=== PATIENT | male | born 1990 | race Caucasian/White ===

== ENCOUNTER 2017-07-15 14:48 | Inpatient (IN) | payer BC, OTHER ==
[~2017-07-15] VITALS: Ht 180.3 cm; Wt 104.3 kg
--- NOTE | 2017-07-15 18:50 | NUR ---
PRE-ASSESSMENT: Client is a 27 y/o male, a/o x 4, he presents with anxious mood, flat affect, he avoids eye contact. he is fully ambulatory. VS BP 137/77, P 86, RR 16, TEMP 97.6, SPo2 97% on RA, pain 0/10. Client is here for heroin withdrawal, he has been using heroin IV since the age of 17 y/o, last used today @ 1200 1 gm. Client denies any past medical history or surgical history. Client denies taking any medications. Client states that he does not have a PCP. Unit and facility protocols explained, he verbalized understanding.
[2017-07-15] MEDS ORDERED: ONDANSETRON 4 MG/2 ML VIAL IM PRN (19:45)
[2017-07-15] MEDS ORDERED: LORAZEPAM 1 MG TABLET PO PRN (19:45)
[2017-07-15] MEDS ORDERED: MAG HYDROX/AL HYDROX/SIMETH 30 ML LIQUID UDC PO PRN (19:45)
[2017-07-15] MEDS ORDERED: DICYCLOMINE HCL 20 MG TABLET PO PRN (19:45)
[2017-07-15] MEDS ORDERED: ONDANSETRON ODT 4 MG TAB.RAPDIS SL PRN (19:45)
[2017-07-15] MEDS ORDERED: DOCUSATE SODIUM 250 MG CAPSULE PO PRN (19:45)
[2017-07-15] MEDS ORDERED: MAGNESIUM HYDROXIDE 30 ML LIQUID UDC PO PRN (19:45)
[2017-07-15] MEDS ORDERED: diphenhydrAMINE 50 MG CAPSULE PO PRN (19:45)
[2017-07-15] MEDS ORDERED: CLONIDINE HCL 0.1 MG TABLET PO PRN (19:45)
[2017-07-15] MEDS ORDERED: HYDROXYZINE PAMOATE 25 MG CAPSULE PO PRN (19:45)
[2017-07-15] MEDS ORDERED: MIRALAX 17 GM POWD.PACK PO PRN (19:45)
[2017-07-15] MEDS ORDERED: LOPERAMIDE HCL 2 MG CAPSULE PO PRN ×2 (19:45)
[2017-07-15] MEDS ORDERED: ACETAMINOPHEN 325 MG TABLET PO PRN (19:45)
[2017-07-15] MEDS ORDERED: IBUPROFEN 600 MG TABLET PO PRN (19:45)
--- NOTE | 2017-07-15 20:00 | NUR ---
Admission Patient is a 27 year old male arriving from [facility], admitted to [facility] to receive treatment for his Opioid Dependence. Patient was escorted on to unit by male JOB HONER where body check was rendered. Skin check rendered by male nurse with skin noted intact. Patient is able to provide Urine drug screen upon arrival to unit. Patient verbalizes no known allergies. Height noted as 5'11 and weight noted as 230lbs. Patient is ambulatory with no assistance needed. Patient is cooperative with admission process but appears restless and easily agitated. Breathing is even and non labored with no signs of SOB. No pain or discomfort verbalized. BUE and BLE noted to be WNL with no edema noted. Lung sounds clear with no cough noted. Bowel sounds are active in all 4 quadrants. No Past medical History verbalized. No history of Seizure noted. Patient denies any suicidal ideations. He describes his usage as: 1. Heroin, which he started at the age of 17, but recently relapsed on June 24, 2017. Patient reports of using 1GM IV Daily. Last used noted to be 1200 on day of admission using 1GM IV. Patient reports his signs and symptoms of withdrawal as "Nausea, stomach cramps, chills, sweats, very restless, anxious, irritable." Patient currently lives alone in an apartment in [place] and is currently unemployed. Admission COWS noted to be 9. All information reviewed with Dr. Martinez. Labs to be rendered. PRN medications available for increased signs and symptoms. Will continue plan of care as ordered.
[2017-07-15 20:10] VITALS: BP 140/72
[2017-07-15] MEDS ORDERED: BUPRENORPHINE HCL 2 MG TAB.SUBL SL PRN (21:00)
[2017-07-15] MEDS ORDERED: LORAZEPAM 1 MG TABLET PO ONE (21:00)
[2017-07-15 21:38] LABS: BASOPHILS % (AUTO) 0.3 % (0.0-2.0); EOSINOPHILS # (AUTO) 0.2 K/uL (0.0-0.7); HEMATOCRIT 37.1 % (36.7-47.1); HEMOGLOBIN 12.8 g/dL (12.5-16.3); LYMPHOCYTES # (AUTO) 1.6 K/uL (20.0-40.0); LYMPHOCYTES % (AUTO) 16.6 % (20.5-51.5); MEAN CORPUSCULAR HEMOGLOBIN 30.4 uug (23.8-33.4); MEAN CORPUSCULAR HGB CONC 35 g/dL (32.5-36.3); MEAN CORPUSCULAR VOLUME 87.9 fL (73.0-96.2); MONOCYTES # (AUTO) 0.9 K/uL (2.0-10.0); MONOCYTES % (AUTO) 9.7 % (0.0-11.0); NEUTROPHILS # (AUTO) 6.7 K/uL (1.8-8.9); NEUTROPHILS % (AUTO) 71.4 % (38.5-71.5); PLATELET COUNT (AUTO) 265 K/uL (152-348); RED BLOOD CELL COUNT(AUTO) 4.22 MIL/uL (4.06-5.63); WHITE BLOOD COUNT (AUTO) 9.4 K/uL (3.6-10.2)
[2017-07-15] MEDS: METHOCARBAMOL 750 MG TABLET PO PRN (21:40)
--- NOTE | 2017-07-15 21:40 | NUR ---
PRN Medication Administration Patient noted verbalizing increased body aches, stomach cramps, and heartburn. PRN Bentyl, Maalox, and Robaxin administered with one time dose of Ativan 2mg. COWS noted to be 9. Patient tolerated medication well. Will continue to monitor.
[2017-07-15 21:41] LABS: *AMPHETAMINE, URINE NEGATIVE (NEGATIVE); *BARBITURATE, URINE NEGATIVE (NEGATIVE); *CANNABINOID, URINE NEGATIVE (NEGATIVE); *COCCAINE, URINE NEGATIVE (NEGATIVE); *OPIATE, URINE POSITIVE (NEGATIVE); *PHENCYCLIDINE SCREEN,URINE NEGATIVE (NEGATIVE)
[2017-07-15 21:45] LABS: ALANINE AMINOTRANSFERASE 49 U/L (16-63); ALKALINE PHOSPHATASE 45 U/L (50-136); ASPARTATE AMINOTRANSFERASE 32 U/L (15-37); BILIRUBIN,TOTAL 0.5 mg/dL (0.2-1.0); CARBON DIOXIDE 36 mmol/L (21-32); CHLORIDE 98 mmol/L (98-107); CREATININE 1.1 mg/dL (0.6-1.3); GLUCOSE 105 mg/dL (74-106); POTASSIUM 3.3 mmol/L (3.5-5.1); TOTAL PROTEIN, SERUM 6.3 g/dL (6.4-8.2); UREA NITROGEN, BLOOD 11 mg/dL (7-18)
[2017-07-15 21:47] LABS: ETHANOL < 3 MG/DL (0-0)
[2017-07-15] MEDS ORDERED: POTASSIUM CHLORIDE 20 MEQ TAB.PRT.SR PO ONE (22:30)
--- NOTE | 2017-07-15 22:40 | NUR ---
PRN Medication Reassessment/MD Communication Patient is noted in his bed, awake, alert and verbally responsive. Patient was given PRN Bentyl, Robaxin, and Maalox. Patient is able to verbalize "the medications helped me relax. Im going to try and get some sleep." PRN medications noted to be effective. Labs resulted and relayed to MD with new order placed for -DUR 20meq one time dose. Medication administered as per order. Patient tolerated medication well. Will continue to monitor.
[2017-07-16 00:20] VITALS: BP 129/79
[2017-07-16 04:15] VITALS: BP 128/83
--- NOTE | 2017-07-16 07:10 | NUR ---
End of Shift Patient is in bed sleeping. Breathing even and non labored. Patient is a 27 year old male admitted on 07/16/17 for Opiate Dependence under the care of Dr. Martinez. Patient is set to start a modified 4 day Subutex taper this morning 07/16/17 0900. Patient verbalizes no known allergies, wishes to be full code, following a regular diet, placed on fall precautions. No Past medical history noted. Patient Received PRN Bentyl, Robaxin, and Maalox with all medications noted to be effective. Patient slept a total of 7 hours. Last noted CIWA 9. All needs attended to promptly. Will endorse to continue plan of care as ordered.
--- NOTE | 2017-07-16 07:50 | NUR ---
START OF SHIFT NOTE: Patient is a 27 year old male admitted to [facility] on 07/15/2017 for safety withdrawal from Opioid. Patient's order for4 Day Subutex taper will starting today, 07/16/2017 @0900. Patient reports NKA, is on Full Code, Regular Diet, and Fall Precautions. Patient denies PMH. Patient is alert and oriented x4. Speech is clear and soft. CIWA 7. Patient presented with anxiety, agitation, nervousness, restlessness, nasal stuffy and moist eyes, tremors that can be felt, and sweating. Patient denies any hallucinations now. Patient denies SI/HI. VS: T: 98.4, HR: 72, BP: 121/56, O2SAT in RA 98%, RR:14, pain level "0/10". Respirations unlabored and even. Patient denies cough, SOB, and chest pain. Abdomen is soft and non-tender. Skin is intact, warm, and dry to touch. Encouraged fluids intake as tolerated. All needs met. Safety measures in place: Call light within reach, bed is locked and in the lowest position, padded bed rails up x2. Patient endorsed by night club manager nurse. Report received.
[2017-07-16 08:00] VITALS: BP 121/56
[2017-07-16] MEDS: BUPRENORPHINE HCL 2 MG TAB.SUBL SL SCH ×3 (08:37→20:17)
[2017-07-16] MEDS ORDERED: TUBERCULIN,PURIF.PROT.DERIV. 5 TU/0.1 ML TEST ID ONE (09:00)
[2017-07-16 12:00] VITALS: BP 112/60
[2017-07-16 16:00] VITALS: BP 126/60
--- NOTE | 2017-07-16 18:51 | NUR ---
END OF SHIFT NOTE: Patient is a 27 year old male, admitted on 07/15/2017 for Heroin dependence, continues 4 Day Subutex Taper, tolerated well without ASE. Patient remains compliant with treatment, medications, and diet regime. Patient reports NKA, is on Full Code, Fall Precautions. Last CIWA 5 @1600. Patient presented with anxiety, agitation, nervousness , tremors, that can be felt, generalized body aches, barely sweating, and restlessness. Last VS@ 1600: T: 98.4, HR: 80,BP:126/60, O2SAT: 99%, RR: 16, pain level "5/10". Respirations are even and unlabored. Lung Sounds clear throughout. Patient denies cough, SOB, and chest pain. Skin is intact, warm, and dry to touch. No PRN Medications administrated during my shift. Patient intake 794 ml, voided x1. Encouraged fluids intake as tolerated. Encouraged to attend groups activities. Patient intake 2,500 ml, voided x1. Encouraged fluids intake as tolerated. Encouraged to attend groups activities. All needs met. Safety measures in place: Call light within reach, bed is locked and in the lowest position, padded bed rails up x2. Patient endorsed to weight shifter nurse. Report given.
--- NOTE | 2017-07-16 19:10 | NUR ---
Start of Shift Patient Received. Patient is in bed sleeping but easily aroused to verbal stimuli. Breathing even and non labored. Patient is a 27 year old male admitted on 07/16/17 for Opiate Dependence under the care of Dr. Martinez. Patient was started on a 4 day Subutex taper and is tolerating well. Patient verbalizes no known allergies, Full Code, Regular Diet, placed on fall precautions, and skin intact. No Past medical history noted. No PRN Medications administered. Last noted COWS 5. All needs attended to promptly. Will endorse to continue plan of care as ordered.
[2017-07-16 20:06] VITALS: BP 140/68
[2017-07-16] MEDS: METHOCARBAMOL 750 MG TABLET PO PRN (20:16)
[2017-07-16] MEDS: GABAPENTIN 300 MG CAPSULE PO SCH (20:16)
--- NOTE | 2017-07-16 20:20 | NUR ---
PRN Medication Administration Patient noted verbalizing increased anxiety, restlessness, and increased body aches. PRN Robaxin and Clonidine administered as per order. Will continue to monitor.
--- NOTE | 2017-07-16 21:20 | NUR ---
PRN Medication Reassessment Patient is noted in bed sleeping. Breathing even and non labored. No restlessness or facial grimacing noted. Patient was given PRN Clonidine and Robaxin with medication noted to be effective. Will continue to monitor.
[2017-07-17 00:36] VITALS: BP 123/79
[2017-07-17 04:00] VITALS: BP 129/84
--- NOTE | 2017-07-17 07:10 | NUR ---
End of Shift Patient is in bed sleeping. Breathing even and non labored. Patient is a 27 year old male admitted on 07/16/17 for Opiate Dependence under the care of Dr. Martinez. Patient was started on a 4 day Subutex taper and is tolerating well. Patient verbalizes no known allergies, Full Code, Regular Diet, placed on fall precautions, and skin intact. No Past medical history noted. Patient received PRN Clonidine and Robaxin with medication noted to be effective. Last noted COWS 7. All needs attended to promptly. Will endorse to continue plan of care as ordered.
--- NOTE | 2017-07-17 07:40 | NUR ---
START OF SHIFT NOTE Received report from night nurse, 27 year old male admitted for Opioid dependence. Patient cont on 4 days Subutex taper. Patient denies any PMH. Per endorsement pt received PRN Robaxin/Clonidine effective per night nurse, Last COWS was 7. Patient slept for 10 hours. Received patient in room alert and oriented x 4. Educated patient on the current plan of care for the day and medication regimen. Safety measures in place. call light kept with in reach, Will continue to monitor.
[2017-07-17 08:00] VITALS: BP 135/64
[2017-07-17] MEDS: GABAPENTIN 300 MG CAPSULE PO SCH ×3 (08:42→21:13)
[2017-07-17] MEDS ORDERED: BUPRENORPHINE HCL 2 MG TAB.SUBL SL SCH (09:00)
[2017-07-17 12:00] VITALS: BP 108/55
[2017-07-17 12:11] LABS: HEPATITIS B SURFACE AG Negative (Negative)
[2017-07-17] MEDS: BACLOFEN 10 MG TABLET PO SCH ×2 (14:35→21:13)
[2017-07-17] MEDS: BUPRENORPHINE HCL 2 MG TAB.SUBL SL SCH ×2 (14:35→21:14)
[2017-07-17 16:00] VITALS: BP 117/57
--- NOTE | 2017-07-17 19:10 | NUR ---
END OF SHIFT NOTE Patient cont on Subutex taper tolerating well. Patient presented with body aches, anxiety, agitation, stuffy nose, scheduled medications administered noted to be effective. patient did not receive any PRN during shift. Vital signs remained WNL. Patient rested in bed most of the shift and isolated self from peers. He did not attend any groups and activities. Patient educated to attend groups to learn new coping skills with good verbal understanding. Encourage Po fluids as tolerated. Last COWS score was 3 @ 1600. All needs attended, Safety measures in place, call light within reach. Patient endorsed to night nurse in stable condition.
--- NOTE | 2017-07-17 19:15 | NUR ---
START OF SHIFT NOTE : Patient is a 27 year old male admitted to [facility] on 07/15/2017 for safety withdrawal from Opioid. Patient placed on 4 Day Subutex taper started on 07/16/2017. Patient reports NKA, is on Full Code, Regular Diet, and Fall Precautions. Patient denies PMH. Patient is alert and oriented x4. Speech is clear and soft. Patient presented with anxiety, tremors that can be felt. Patient denies any hallucinations now. Patient denies SI/HI. Respirations unlabored and even. Patient denies cough, SOB, and chest pain. Abdomen is soft and non-tender. Encouraged fluids intake as tolerated. Safety measures in place: Call light within reach, bed is locked and in the lowest position, padded bed rails up x2.
[2017-07-17 20:00] VITALS: BP 110/70
--- NOTE | 2017-07-17 21:00 | NUR ---
PRN ROBAXIN, VISTARIL Pt. complains of increased level of anxiety, mild muscle spasm. PRN ROBAXIN, VISTARIL given as ordered. Safety measures in place : bed on lowest position with side rails x2 up for safety, call light within reach. Will continue to monitor closely and offer help.
[2017-07-17] MEDS: CLONIDINE HCL 0.1 MG TABLET PO SCH (21:13)
[2017-07-17] MEDS: METHOCARBAMOL 750 MG TABLET PO PRN (21:13)
--- NOTE | 2017-07-17 22:00 | NUR ---
RE-ASSESSMENT OSCAR SAWANT Pt. is sleeping, RR=16 unlabored and even. . Safety measures in place : bed on lowest position with side rails x2 up for safety, call light within reach. Will continue to monitor closely and offer help.
--- NOTE | 2017-07-18 06:29 | NUR ---
END OF SHIFT NOTE : Patient is a 27 year old male admitted to [facility] on 07/15/2017 for safety withdrawal from Opioid. Patient placed on 4 Day Subutex taper started on 07/16/2017. Patient reports NKA, is on Full Code, Regular Diet, and Fall Precautions. Patient denies PMH Pt remains compliant with the treatment plan. PRN ROBAXIN, VISTARIL were given during my shift. V/S remain WNL. RR=16, even and unlabored, lungs clear upon auscultation, abdomen soft and non- distended. Pt denies nausea, vomiting and diarrhea. COWS taken when pt. was alert during the night, LAST COWS= 3 at 0400 , BSNEQT=004 ml, voided x2 , slept 7 hours. Safety measures in place : bed on lowest position with side rails x2 up for safety, call light within reach. Will continue to monitor closely and offer help.
--- NOTE | 2017-07-18 07:30 | NUR ---
START OF SHIFT NOTE Received report from night nurse, 27 year old male admitted for Opioid dependence. Patient cont on 4 days Subutex taper. Patient denies any PMH. Per endorsement pt received PRN Robaxin/Clonidine effective per night nurse, Last COWS was 3. Patient slept for 7 hours. Received patient in room alert and oriented x 4. Educated patient on the current plan of care for the day and medication regimen. Safety measures in place. call light kept with in reach, Will continue to monitor.
[2017-07-18 08:00] VITALS: BP 126/63
[2017-07-18] MEDS: BUPRENORPHINE HCL 2 MG TAB.SUBL SL SCH ×3 (08:52→21:16)
[2017-07-18] MEDS: GABAPENTIN 300 MG CAPSULE PO SCH ×3 (08:52→21:16)
[2017-07-18] MEDS: BACLOFEN 10 MG TABLET PO SCH ×3 (08:52→21:16)
[2017-07-18] MEDS: CLONIDINE HCL 0.1 MG TABLET PO SCH ×2 (08:53→21:16)
[2017-07-18 12:00] VITALS: BP 107/55
[2017-07-18 16:00] VITALS: BP 131/66
--- NOTE | 2017-07-18 19:05 | NUR ---
END OF SHIFT NOTE Patient cont on Subutex taper tolerating well. Patient presented with body aches, anxiety, agitation, stuffy nose, scheduled medications administered noted to be effective. patient did not receive any PRN during shift. Vital signs remained WNL. Patient educated to attend groups to learn new coping skills with good verbal understanding. Encourage Po fluids as tolerated. Last COWS score was 4 @ 1600. All needs attended, Safety measures in place, call light within reach. Patient endorsed to night nurse in stable condition.
[2017-07-18 20:00] VITALS: BP 122/68
--- NOTE | 2017-07-18 20:00 | NUR ---
START OF SHIFT NOTE RECEIVED REPORT FROM DAY SHIFT NURSE. PATIENT IS A 27 YEAR OLD MALE ADMITTED FOR OPIATE DEPENDENCE. PATIENT IS ON 3RD DAY OF HIS 4 DAY SUBUTEX TAPER, TOLERATED WELL. PATIENT DID NOT REQUIRE ANY PRN MEDICATION . LAST COWS 4. RECEIVED PATIENT IN THE ROOM, RESTING. PATIENT REPORTS ANXIETY, STUFFY NOSE, SWEATING , NO N/V , DENIES ANY PAIN. ON FALL PRECAUTION. SAFETY MEASURES IN PLACE. CALL LIGHT IN REACH. WILL CONTINUE TO MONITOR.
--- NOTE | 2017-07-19 | NUR ---
COWS DEFERRED PATIENT SLEEPING. COWS DEFERRED. VS REFUSED. RESPIRATION EVEN AND UNLABORED. SAFETY MEASURES IN PLACE. CALL LIGHT IN REACH. WILL CONTINUE TO MONITOR
--- NOTE | 2017-07-19 04:00 | NUR ---
COWS DEFERRED PATIENT SLEEPING. COWS DEFERRED. VS REFUSED. RESPIRATION EVEN AND UNLABORED. SAFETY MEASURES IN PLACE. CALL LIGHT IN REACH. WILL CONTINUE TO MONITOR
--- NOTE | 2017-07-19 06:57 | NUR ---
END OF SHIFT NOTE PATIENT CONTINUE ON SUBUTEX TAPER FOR OPIATE DEPENDENCE, TOLERATED WELL AND NO ADVERSE REACTION. PATIENT IN HIS ROOM , MOST OF THE SHIFT. PATIENT COMPLIANT WITH MEDICATIONS. PATIENT DID NOT REQUIRE ANY PRN MEDICATION . MONITORED THROUGHOUT SHIFT. ON FALL PRECAUTION. SAFETY MEASURES IN PLACE. CALL LIGHT IN REACH. WILL CONTINUE TO MONITOR. SLEPT 9 HOURS.FLUID INTAKE 700 ML. VOIDED X 1. NO BM. LAST COWS 5.
--- NOTE | 2017-07-19 07:32 | NUR ---
START OF SHIFT NOTE Received report from night nurse, 27 year old male admitted for Opioid dependence. Patient cont on 4 days Subutex taper. Patient denies any PMH. Per endorsement pt did not receive any PRN'S, Last COWS was 5. Patient slept for 9 hours. Received patient in room alert and oriented x 4. Educated patient on the current plan of care for the day and medication regimen. Safety measures in place. call light kept with in reach, Will continue to monitor.
[2017-07-19 08:00] VITALS: BP 122/74
[2017-07-19] MEDS ORDERED: BUPRENORPHINE HCL 2 MG TAB.SUBL SL SCH (09:00)
[2017-07-19] MEDS: BACLOFEN 10 MG TABLET PO SCH ×3 (09:02→21:11)
[2017-07-19] MEDS: GABAPENTIN 300 MG CAPSULE PO SCH (09:02)
[2017-07-19] MEDS: CLONIDINE HCL 0.1 MG TABLET PO SCH ×3 (09:03→21:11)
--- NOTE | 2017-07-19 09:12 | NUR ---
PRN MAALOX Patient was c/o of hear burn, non pharmacological intervention ineffective. PRN Maalox 30ml given as ordered, Will cont to monitor and reassess the pt.
--- NOTE | 2017-07-19 10:12 | NUR ---
MAALOX REASSESSMENT Patient reported Maalox was effective feeling relief from heart burn.
--- NOTE | 2017-07-19 10:24 | NUR ---
Therapist prompted client about group times. Client stated he does not plan to go to groups because he has an extensive history of treatment and feels he "won't learn anything new." Therapist discussed benefits of group therapy and encouraged client to attend.
[2017-07-19 12:00] VITALS: BP 117/65
[2017-07-19] MEDS ORDERED: NICOTINE 14 MG/24HR PATCH TD PRN (12:15)
[2017-07-19] MEDS ORDERED: NICOTINE POLACRILEX 4 MG GUM-PK OF TEN BC PRN (12:15)
[2017-07-19] MEDS: GABAPENTIN 400 MG CAPSULE PO SCH ×2 (14:05→21:10)
[2017-07-19 16:00] VITALS: BP 111/62
--- NOTE | 2017-07-19 19:06 | NUR ---
END OF SHIFT NOTE Patient completed his Subutex taper tolerated well. Patient presented with heart burn PRN Maalox was given noted to be effective. Vital signs remained WNL. Patient attend groups and activities. Encourage Po fluids as tolerated. Last COWS score was 1 @ 1600. Patient scheduled for discharge in AM. All needs attended, Safety measures in place, call light within reach. Patient endorsed to night nurse in stable condition.
[2017-07-19] MEDS ORDERED: CLON0.1T14 PO (19:27)
[2017-07-19] MEDS ORDERED: HYDR-3895 PO (19:27)
[2017-07-19] MEDS ORDERED: GABA-536 PO (19:27)
[2017-07-19] MEDS ORDERED: DIPH50CA37 PO (19:27)
[2017-07-19] MEDS ORDERED: METH-406 PO (19:27)
[2017-07-19] MEDS ORDERED: NICO4GUM38 BC (19:27)
[2017-07-19] MEDS ORDERED: IBUP-1955 PO (19:27)
[2017-07-19] MEDS ORDERED: DICY20TA28 PO (19:27)
[2017-07-19 20:00] VITALS: BP 113/70
--- NOTE | 2017-07-19 20:00 | NUR ---
START OF SHIFT NOTE RECEIVED REPORT FROM DAY SHIFT NURSE. PATIENT IS A MEDICALLY CLEARED TO BE DISCHARGE TOMORROW. PATIENT COMPLETED 4 DAY SUBUTEX TAPER, TOLERATED WELL AND NO ADVERSE REACTION. PATIENT COMPLIANT WITH MEDICATIONS. EATING AND DRINKING FLUIDS WELL. PATIENT DID NOT REQUIRE ANY PRN MEDICATION. LAST COWS 1. RECEIVED PATIENT ALERT AND ORIENTED X 4. RESPIRATION EVEN AND UNLABORED. PATIENT STATES HE'S BETTER AND HE'S LEAVING TOMORROW. ON FALL PRECAUTION. SAFETY MEASURES IN PLACE. CALL LIGHT IN REACH. WILL CONTINUE TO MONITOR.
--- NOTE | 2017-07-19 21:11 | NUR ---
PRN MOTRIN ADMINISTRATION PATIENT C/O HEADACHE 12/15, PRN MOTRIN GIVEN. WILL MONITOR FOR EFFECTIVENESS
--- NOTE | 2017-07-19 22:11 | NUR ---
PRN MOTRIN RE-ASSESSMENT PATIENT STATES MOTRIN IS HELPFUL AND EFFECTIVE. NO PAIN AT THIS TIME 0/10. WILL CONTINUE TO MONITOR
--- NOTE | 2017-07-20 | NUR ---
COWS DEFERRED PATIENT SLEEPING. COWS DEFERRED. REFUSED VS. RESPIRATION EVEN AND UNLABORED. SAFETY MEASURES IN PLACE. CALL LIGHT IN REACH. WILL CONTINUE TO MONITOR.
--- NOTE | 2017-07-20 04:00 | NUR ---
COWS DEFERRED PATIENT SLEEPING. COWS DEFERRED. REFUSED VS. RESPIRATION EVEN AND UNLABORED. SAFETY MEASURES IN PLACE. CALL LIGHT IN REACH. WILL CONTINUE TO MONITOR.
--- NOTE | 2017-07-20 06:58 | NUR ---
START OF SHIFT NOTE PATIENT IS A MEDICALLY CLEARED TO BE DISCHARGE TODAY. PATIENT COMPLETED 4 DAY SUBUTEX TAPER, TOLERATED WELL AND NO ADVERSE REACTION. PATIENT COMPLIANT WITH MEDICATIONS. EATING AND DRINKING FLUIDS WELL. PATIENT WAS PRN MOTRIN FOR HEADACHE, EFFECTIVE. ON FALL PRECAUTION. SAFETY MEASURES IN PLACE. CALL LIGHT IN REACH. WILL CONTINUE TO MONITOR. SLEPT 6 HOURS. FLUID INTAKE 1,350 ML. VOIDED X 2. NO BM . LAST COWS 0.
--- NOTE | 2017-07-20 07:43 | NUR ---
START OF SHIFT NOTE Received report from night nurse, 27 year old male admitted for Opioid dependence. Patient completed his 4 days Subutex taper. Patient denies any PMH. Per endorsement pt received PRN Motrin, Last COWS was 0. Patient slept for 6 hours. Patient scheduled for discharge today at 0900. Received patient in room alert and oriented x 4. Educated patient on the current plan of care for the day and medication regimen. Safety measures in place. call light kept with in reach, Will continue to monitor.
[2017-07-20 08:00] VITALS: BP 123/65
[2017-07-20] MEDS: GABAPENTIN 400 MG CAPSULE PO SCH (08:24)
[2017-07-20] MEDS: BACLOFEN 10 MG TABLET PO SCH (08:24)
[2017-07-20 08:25] VITALS: BP 123/72
[2017-07-20] MEDS: CLONIDINE HCL 0.1 MG TABLET PO SCH (08:25)
--- NOTE | 2017-07-20 09:45 | NUR ---
DISCHARGE NOTE Patient is in stable condition. Vital signs WNL,Patient is alert oriented x4, Skin intact warm and dry tot touch. Patient denies any SI/HI ideations. All discharge paper work done signed and dated. Patient educated about discharge instructions, Pt verbalized understanding. Patient 's last COWS score was 1. Patient discharged from [facility] on 07/20/17 at 0945. Patient left the building with all of his belongings and prescriptions, Patient did not bring any medications with him to the unit. has been contracted and notified of Pt's discharge.
== END 2017-07-20 09:45 | disposition other institution (70) | DRG 895 ==
LOC: SRC 18:24
PROVIDERS: ADMIT Internal Medicine; ATTEND Internal Medicine
PROC: HZ2ZZZZ Detoxification Services for Substance Abuse Treatment (ICD-10-PCS; principal; 2017-07-15)
PROC: HZ31ZZZ Individual Counseling for Substance Abuse Treatment, Behavioral (ICD-10-PCS; 2017-07-19)
DX: F11.23 Opioid dependence with withdrawal (principal); E87.3 Alkalosis; E88.09 Other disorders of plasma-protein metabolism, not elsewhere classified; E87.6 Hypokalemia; F17.210 Nicotine dependence, cigarettes, uncomplicated; E86.0 Dehydration; Z82.49 Family history of ischemic heart disease and other diseases of the circulatory system; Z81.3 Family history of other psychoactive substance abuse and dependence
CPT/HCPCS: 36415; 80307; 80361; 83735; 85025; 86580; 86592; 86705; 86803; 87340; 87806; A4663; G0480; Q0163